=== PATIENT | female | born 1990 | race Caucasian/White ===

== ENCOUNTER 2018-07-29 14:10 | Emergency (ER) | payer OTHER ==
[2018-07-29] MEDS ORDERED: TETRACAINE HCL 0.5% OPH SOLN 4 ML OD ONE (14:38)
[2018-07-29] MEDS ORDERED: KETOROLAC TROMETHAMINE 0.45% 4 DROP/0.4 ML DROPERETTE OS ONE (15:21)
--- NOTE | 2018-07-29 15:29 | ER Document Report ---
ED Eye Complaint - General Chief Complaint: Eye Problem Stated Complaint: EYE IRRITATION,PAIN Time Seen by Provider: 07/29/18 14:37 Mode of Arrival: Ambulatory Information source: Patient Notes: 28-year-old female presented to ED for complaint of left eye pain. She states she felt like she scratched her eye while she was put on her makeup. She states that it would happen right before she came to the emergency room. She is reports redness and tearing pain. There were no tears redness or any abnormalities noted on exam. Patient is alert and oriented respirations regular and unlabored speaking in full sentences but is upset that her left eye hurts. - HPI Onset: Just prior to arrival Eye location: Left Injury: Yes - That she must have scratched her eye or got something in her eye Quality of pain: Burning Severity: Moderate Pain Level: 3 Safety glasses worn: No Contact lenses worn: No Associated symptoms: Burning, Itching, Pain - Related Data Allergies/Adverse Reactions: No Known Allergies Allergy (Unverified 07/29/18 14:41) Past Medical History - General Information source: Patient - Social History Smoking Status: Never Smoker Chew tobacco use (# tins/day): No Frequency of alcohol use: Social Drug Abuse: None Lives with: Family Family History: Reviewed & Not Pertinent Patient has suicidal ideation: No Patient has homicidal ideation: No - Past Medical History Cardiac Medical History: Reports: None Pulmonary Medical History: Reports: None EENT Medical History: Reports: Other - 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 Neurological Medical History: Reports: None Endocrine Medical History: Reports: None Renal/ Medical History: Reports: None Malignancy Medical History: Reports: None GI Medical History: Reports: None Musculoskeletal Medical History: Reports Hx Musculoskeletal Deformity, Reports Hx Musculoskeletal Trauma Skin Medical History: Reports None Psychiatric Medical History: Reports: None Traumatic Medical History: Reports: None Infectious Medical History: Reports: None Past Surgical History: Reports: Hx Section, Hx Oral Surgery - Repair of cleft lip cleft palate and jaw, Hx Orthopedic Surgery - Right knee left shoulder graft from her right hip to put into her right jaw. Denies: Hx Myringotomy - Multiple ear surgeries to repair tympanic membrane - Immunizations Immunizations up to date: Yes Review of Systems - Review of Systems Notes: REVIEW OF SYSTEMS: CONSTITUTIONAL : Denies fever, chills, or sweats. Denies recent illness. EENT: Planes of burning itching and tearing to the left eye. She states she was putting on her makeup and thinks she scratched her eye or got something in her eye and she has had the feelings of a foreign body burning and scratching ever since then. She states that her ear continues to tear. She states there is pain with movement of the eye. Denies ear, throat, or mouth pain or symptoms. Denies nasal or sinus congestion or discharge. Denies throat, tongue , or mouth swelling or difficulty swallowing. CARDIOVASCULAR: Denies chest pain. Denies palpitations or racing or irregular heart beat. Denies ankle edema. RESPIRATORY: Denies cough, cold, or chest congestion. Denies shortness of breath, difficulty breathing, or wheezing. GASTROINTESTINAL: Denies abdominal pain or distention. Denies nausea, vomiting , or diarrhea. Denies blood in vomitus, stools, or per rectum. Denies black, tarry stools. Denies constipation. GENITOURINARY: Denies difficulty urinating, painful urination, burning, frequency, blood in urine, or discharge. FEMALE GENITOURINARY: Denies vaginal bleeding, heavy or abnormal periods, irregular periods. Denies vaginal discharge or odor. MUSCULOSKELETAL: Denies back or neck pain or stiffness. Denies joint pain or swelling. SKIN: Denies rash, lesions or sores. HEMATOLOGIC : Denies easy bruising or bleeding. LYMPHATIC: Denies swollen, enlarged glands. NEUROLOGICAL: Denies confusion or altered mental status. Denies passing out or loss of consciousness. Denies dizziness or lightheadedness. Denies headache. Denies weakness or paralysis or loss of use of either side. Denies problems with gait or speech. Denies sensory loss, numbness, or tingling. Denies seizures. PHYSICAL EXAMINATION: GENERAL: Well-appearing, well-nourished and in no acute distress. HEAD: Atraumatic, normocephalic. EYES: Pupils equal round and reactive to light, extraocular movements intact. When first examined and there was no Flourescien uptake but when I consulted Dr. Dominguez there developed over time uptake to the flourescien in the lateral conjunctiva. She continued to have the feeling of a foreign body. There was no foreign body noted in the eye at any time. ENT: Nares patent, oropharynx clear without exudates. Moist mucous membranes. NECK: Normal range of motion, supple without lymphadenopathy LUNGS: Breath sounds clear to auscultation bilaterally and equal. No wheezes rales or rhonchi. HEART: Regular rate and rhythm without murmurs ABDOMEN: Soft, nontender, nondistended abdomen. No guarding, no rebound. No masses appreciated. Female : deferred Musculoskeletal: Normal range of motion, no pitting or edema. No cyanosis. NEUROLOGICAL: Cranial nerves grossly intact. Normal speech, normal gait. Normal sensory, motor exams PSYCH: Normal mood, normal affect. SKIN: Warm, Dry, normal turgor, no rashes or lesions noted. PSYCHIATRIC: Denies anxiety or stress. Denies depression, suicidal ideation, or homicidal ideation. ALL OTHER SYSTEMS REVIEWED AND NEGATIVE. Dictation was performed using [employer] voice recognition software Physical Exam - Vital signs Vitals: Temp Pulse BP Pulse Ox 97.5 F 70 112/69 99 07/29/18 14:24 07/29/18 14:24 07/29/18 14:24 07/29/18 14:24 Course - Re-evaluation Re-evalutation: 07/29/18 22:05 When I first did the exam on the patient's left eye it was a negative exam. I did go and consult Dr. Dominguez who came and examined the eye. A uptake of the Flourescien did develop to the lateral aspect of the conjunctivae. Dr. Dominguez recommended erythromycin ointment and ketorolac eyedrops for the pain. Patient to follow-up with her primary doctor and an eye physician if the pain continues. Patient was discharged home with prescriptions for the erythromycin ointment and ketorolac eyedrops. - Vital Signs Vital signs: Temp Pulse Resp BP Pulse Ox 97.5 F 73 14 123/72 99 07/29/18 15:52 07/29/18 15:52 07/29/18 15:52 07/29/18 15:52 07/29/18 15:52 Discharge - Discharge Clinical Impression: Conjunctivitis, left eye Qualifiers: Conjunctivitis type: acute Acute conjunctivitis type: unspecified Qualified Code(s): H10.32 - Unspecified acute conjunctivitis, left eye Condition: Stable Disposition: HOME, SELF-CARE Additional Instructions: CONJUNCTIVITIS: You have an infection in your eye, commonly known as "pink eye." Conjunctivitis causes redness, mild discomfort, itching, and mattering on the eyelids. It is very contagious, so you must be careful to wash your hands after touching your face so you don't pass the infection on to others. Conjunctivitis is caused by both viruses and bacteria. It usually responds quickly to treatment with antibiotic drops. These should be placed in the eye as prescribed (usually every three to four hours while you're awake). If you wear contact lenses, don't put them in your eyes until the infection is cleared and you are no longer using the drops (unless your doctor advises you otherwise). Should you develop increasing eye pain, severe swelling, decreased vision, or fail to improve as expected, please return for re-examination. EYEDROP USE: Eyedrops are most easily applied by pulling down on the cheek just below the lower eyelid. The lower lid will pop out to form a pouch into which you can drop the medicine. A small brief sting is not unusual, especially if the eye is reddened and irritated already. Use the drops exactly as recommended. You should see the doctor at once if there is a decrease in vision, swelling of the eye, or an increase in discomfort. ANTIBIOTIC THERAPY: You have been given an antibiotic prescription. It's important that you take all the medication, unless instructed otherwise by your physician. Failure to complete the entire course can result in relapse of your condition. Common side effects of antibiotics include nausea, intestinal cramping, or diarrhea. Women may develop vaginal yeast infections, and babies can get yeast (thrush) in the mouth following the use of antibiotics. Contact your physician if you develop significant side effects from this medication. Allergy to this antibiotic can result in hives, wheezing, faintness, or itching. If symptoms of allergy occur, stop the medication and call the doctor. Erythromycin You have been prescribed an antibiotic of the erythromycin class. These antibiotics are used for many infections, especially in penicillin-allergic patients. They're particularly useful for infections of the respiratory system. The medication will be most effective if taken before or at least two hours after meals. However, many persons will have nausea or stomach cramping with erythromycin. If this occurs, try taking the medicine with food. If the side effects are still intolerable, contact your doctor. You should not take erythromycin with non-sedating antihistamines such as Seldane or Hismanal. Call the doctor at once if you develop rash, itching, shortness of breath, or lightheadedness. FOLLOW-UP CARE: If you have been referred to a physician for follow-up care, call the physician s office for an appointment as you were instructed or within the next two days. If you experience worsening or a significant change in your symptoms, notify the physician immediately or return to the Emergency Department at any time for re-evaluation. Prescriptions: Erythromycin Base [E-Mycin 0.5% Oph Oint 1 gm Unit Dose] 1 applic LFT_EYE Q4HWA #1 tube Ketorolac Tromethamine [Acular] 1 drop LFT_EYE QIDP PRN #5 ml PRN Reason: Referrals: ROXANA COHEN MD [ACTIVE STAFF] - 08/01/18
[2018-07-29] MEDS ORDERED: ERYTHROMYCIN 0.5% OPH OINTMENT 3.5 GM (ER DISP) OS SCH (15:30)
[2018-07-29 15:54] VITALS: BP 123/72
--- NOTE | 2018-07-29 23:11 | ER Document Report ---
Doctor's Note Notes: 07/29/18 23:09 I was asked to evaluate this 28-year-old female with left eye complaint. Patient apparently brushed up against her eye with a makeup sponge device. Shortly afterwards she developed significant eye pain and redness. No loss of vision. Patient was initially seen by the nurse practitioner. Please see her note for further evaluation. I was asked to evaluate the patient today who concurred with her eye exam. I did an independent evaluation on the left eye. After consent was obtained a placed tetracaine drops is followed by floor seen. There appeared to be a small amount of floor seen uptake noted on the left lateral conjunctiva. I then proceeded to do a slit-lamp evaluation. I did not notice any dendritic lesions. Eversion of the eyelids did not reveal any foreign bodies on slit lamp. There was no cell and flare. More than likely this represented a abrasion to the eye. Recommended treatment with antibiotic ointment and anti-inflammatory ketorolac. Patient was advised in the event that she develop any worsening symptoms to return for repeat evaluation.
== END 2018-07-29 15:54 | disposition home or self-care (01) ==
LOC: ER 14:10
DX: H10.32 Unspecified acute conjunctivitis, left eye (principal); H57.12 Ocular pain, left eye
CPT/HCPCS: 99283; J3490